=== PATIENT | male | born 1945 | race Caucasian/White ===

== ENCOUNTER 2024-06-16 07:53 | Inpatient (IN) | payer MEDICARE ==
[2024-06-09 13:53] LABS: BILIRUBIN,URINE NEGATIVE (Neg); CLARITY,URINE CLEAR (Clear); COLOR,URINE YELLOW (Yellow); GLUCOSE, URINE NEGATIVE (Neg); KETONES,URINE NEGATIVE (Neg); LEUKOCYTE ESTERASE ,URINE NEGATIVE (Neg); NITRITES, URINE NEGATIVE (Neg); OCCULT BLOOD,URINE TRACE-INTACT (Neg); PROTEIN,URINE NEGATIVE (Neg); UROBILINOGEN,URINE 0.2 E.U/dL (0.2-1.0)
[2024-06-09 14:04] LABS: BASOPHILS # (AUTO) 0.1 X10'3 (0-0.2); BASOPHILS % (AUTO) 0.7 % (0-1); EOSINOPHILS # (AUTO) 0.3 X10'3 (0-0.9); EOSINOPHILS % (AUTO) 3.1 % (0-6); LYMPHOCYTES % (AUTO) 22.7 % (21-51); MEAN CORPUSCULAR HEMOGLOBIN 30.5 PG (27.0-31.0); MEAN CORPUSCULAR HGB CONC 33.6 g/dL (33.0-36.5); MEAN CORPUSCULAR VOLUME 90.8 FL (78-98); MEAN PLATELET VOLUME 7.8 FL (7.4-10.4); MONOCYTES # (AUTO) 0.6 X10'3 (0-0.9); MONOCYTES % (AUTO) 7.2 % (2-12); NEUTROPHILS # (AUTO) 5.7 X10'3 (1.8-7.7); NEUTROPHILS % (AUTO) 66.3 % (42-75); PRE OP HEMATOCRIT 44.1 % (42.0-52.0); PRE OP HEMOGLOBIN 14.8 g/dL (14.0-17.9); PRE OP PLATELET COUNT 192 X10'3 (140-440); PRE OP WHITE BLOOD COUNT 8.6 10'3 (4.8-10.8); RED BLOOD COUNT 4.86 X10'6 (4.70-6.10); RED CELL DISTRIBUTION WIDTH 13.5 % (11.5-14.5)
[2024-06-09 14:08] LABS: PRE OP INR 1.2 INR; PRE OP PROTIME 12.1 SECONDS (9.0-12.0)
[2024-06-09 14:17] LABS: ALBUMIN 3.4 G/DL (3.4-5.0); ALBUMIN/GLOBULIN RATIO 1.1 (1.1-1.5); ALKALINE PHOSPHATASE 48 IU/L (46-116); BLOOD UREA NITROGEN 20 MG/DL (7-18); BUN/CREATININE RATIO 17.9 (10.0-20.0); CALCIUM 8.1 MG/DL (8.5-10.1); CHLORIDE 105 MMOL/L (99-107); CREATININE 1.12 MG/DL (0.60-1.10); PRE OP ALT 34 U/L (30-65); PRE OP ANION GAP 6 (8-16); PRE OP AST 22 U/L (10-37); PRE OP BILIRUB, TOTAL 0.6 MG/DL (0.0-1.0); PRE OP GLUCOSE 121 MG/DL (70-104); PRE OP POTASSIUM 3.8 MMOL/L (3.4-5.1); PRE OP SODIUM 140 MMOL/L (135-145); THYROID STIMULATING HORMONE 1.32 ulU/ml (0.34-4.50); TOTAL CARBON DIOXIDE 28.7 MMOL/L (24-32); TOTAL PROTEIN 6.5 G/DL (6.4-8.2); UA COLLECTION TYPE NON-SPECIFIED; eGFR 64 ML/MIN
[2024-06-09 14:18] LABS: BACTERIA,URINE NONE SEEN /HPF (Neg); SQUAMOUS EPITHELIAL CELL,UR FEW /LPF (FEW); WBC,URINE 0-4 /HPF (0-4)
[2024-06-16] VITALS (40 sets, daily range): BP systolic 97–163; BP diastolic 53–93; PULSE 61–96; RESP 12–21; TEMP 97–98; O2SAT 9–99
[~2024-06-16] VITALS: Ht 195.6 cm; Wt 125.3 kg
[2024-06-16] MEDS: Cefazolin 3 GM/100ML NS IVPB 100 ML IV ONE (05:30)
[~2024-06-16 07:53] MED LIST: ACET-1025 PO; AMLO5TAB16; CALC600T35 PO; CHOL500050 PO; DABI150C PO; DOCUMENT DATE & TIME OF BETA-BLOCKER PO ONE; FLEC100T PO; LEVO200T PO; LISI20TA28 PO; METO-384 PO; POTA-207 PO; PRAV40TA3; ondansetron/PF 4mg/2ml inj IV PRN
[2024-06-16] MEDS ORDERED: labetalol 20mg/4ml (5mg/ml) syringe IV PRN ×2 (08:40→11:45)
[2024-06-16] MEDS ORDERED: ondansetron/PF 4mg/2ml inj IV PRN ×2 (08:40→11:45)
[2024-06-16] MEDS ORDERED: morphine 2 MG/ML inj. syringe IV PRN (08:40)
[2024-06-16] MEDS ORDERED: morphine 4 MG/ML inj SYRINge IV PRN (08:40)
[2024-06-16] MEDS ORDERED: proCHLORperazine 10 MG/2 ml inj IV PRN ×2 (08:40→11:45)
[2024-06-16] MEDS ORDERED: acetaminophen 1,000mg/100ml IV 100 ML IV ONE (08:40)
[2024-06-16] MEDS ORDERED: ringers solution, lacted 1,000 ML IV SCH (08:40)
[2024-06-16] MEDS ORDERED: meperidine/PF 25mg/ml syringe IV PRN ×3 (08:40)
[2024-06-16] MEDS ORDERED: hydrALAZINE 20mg/ml inj. IV PRN ×2 (08:40→11:45)
[2024-06-16] MEDS: famotidine 20mg tablet PO ONE (08:54)
[2024-06-16] MEDS: vancomycin 1,500 MG in NS 300ml IV soln IV ONE (08:55)
[2024-06-16] MEDS: ringers solution, lacted 1,000 ML IV SCH (08:55)
[2024-06-16] MEDS ORDERED: LIDOcaine 1% (10mg/ml) 2ml vial ONE (10:33)
[2024-06-16] MEDS ORDERED: iohexol 350 MG/ML 50ML vial IV ONE ×2 (10:41→10:47)
[2024-06-16] MEDS ORDERED: sevoflurane 250ml liquid IH ONE (10:55)
[2024-06-16] MEDS ORDERED: fentaNYL/PF 50MCG/1 ML 2ML syringe ONE (10:59)
[2024-06-16] MEDS ORDERED: midazolam 1 mg/ML 2ml injection ONE (11:00)
[2024-06-16] MEDS ORDERED: LIDOcaine 1%/PF 5ML 10 MG/ML VIAL ONE (11:06)
[2024-06-16] MEDS ORDERED: propofol inj 20 ML IV ONE (11:06)
[2024-06-16] MEDS ORDERED: heparin 1,000unit/ml 10ml vial 10 ML ONE (11:12)
[2024-06-16] MEDS ORDERED: ondansetron/PF 4mg/2ml inj ONE (11:14)
[2024-06-16] MEDS ORDERED: dexamethasone sod phosphate 4mg/ml inj. ONE (11:14)
[2024-06-16] MEDS ORDERED: 0.9 % SODIUM CHLORIDE 10 ML VIAL ONE (11:17)
[2024-06-16] MEDS ORDERED: ePHEDrine 50MG/ML INJ. ONE (11:17)
[2024-06-16] MEDS ORDERED: magnesium sulf-water 2g/50mL 50 ML IV PRN (11:45)
[2024-06-16] MEDS ORDERED: potassium Cl 20 mEq SR tablet PO PRN (11:45)
[2024-06-16] MEDS ORDERED: acetaminophen 325mg tablet PO PRN (11:45)
[2024-06-16] MEDS ORDERED: potassium Cl 40MEQ/1/2NS 520ml 520 ML IV PRN (11:45)
[2024-06-16] MEDS ORDERED: pantoprazole 40mg Tablet.DR PO PRN (11:45)
[2024-06-16] MEDS ORDERED: HYDROcodone/acetaminophen 5mg/325mg tablet PO PRN (11:45)
[2024-06-16] MEDS ORDERED: magnesium sulf-water 4G/100mL 100 ML IV PRN (11:45)
[2024-06-16] MEDS ORDERED: potassium Cl 40MEQ/270ML bag 250 ML IV PRN (11:45)
[2024-06-16] MEDS ORDERED: potassium Cl 20mEq/100mL bag 100 ML IV PRN (11:45)
[2024-06-16] MEDS ORDERED: ALPRAZolam 0.25mg tablet PO PRN (11:45)
[2024-06-16] MEDS ORDERED: docusate sod 100mg capsule PO PRN (11:45)
[2024-06-16] MEDS ORDERED: diphenhydrAMINE 25mg capsule PO PRN (11:45)
[2024-06-16] MEDS ORDERED: potassium CL 10mEq/100ml bag 100 ML IV PRN (11:45)
[2024-06-16] MEDS: normal saline 1000ml 1,000 ML IV SCH (16:08)
[2024-06-16] MEDS: sod chloride 0.9% 10ml flush syringe IV SCH (16:13)
[2024-06-16] MEDS: ceFAZolin 1GM/D5W- ADD-VANTAGE 50 ML IV SCH (16:18)
[2024-06-16] MEDS: lisinopril 20mg tablet PO SCH (19:42)
[2024-06-16] MEDS: acetaminophen 325mg tablet PO SCH (19:44)
[2024-06-16] MEDS: vancomycin/NS 1 GM ADD-VANTAGE 250 ML IV SCH (19:45)
[2024-06-16] MEDS: flecainide 50mg tablet PO SCH (20:11)
[2024-06-16] MEDS: calcium carbonate 500mg tablet PO SCH (21:00)
[2024-06-17 02:00] VITALS: BP 105/64; PULSE 71; RESP 18; TEMP 98; O2SAT 96
[2024-06-17 03:45] VITALS: BP 111/73; PULSE 65; O2SAT 95
[2024-06-17 06:00] VITALS: BP 133/73; PULSE 70; RESP 26; TEMP 97.9; O2SAT 96
[2024-06-17] MEDS: levoTHYROXINE 100mcg tablet PO SCH (06:12)
[2024-06-17 06:35] LABS: BASOPHILS % (AUTO) 0.1 % (0-1); EOSINOPHILS % (AUTO) 0 % (0-6); HEMATOCRIT 41.5 % (42.0-52.0); HEMOGLOBIN 13.9 g/dl (14.0-17.9); LYMPHOCYTES # (AUTO) 1.2 X10'3 (1.1-4.8); LYMPHOCYTES % (AUTO) 11.5 % (21-51); MEAN CORPUSCULAR HEMOGLOBIN 30.4 PG (27.0-31.0); MEAN CORPUSCULAR HGB CONC 33.6 g/dL (33.0-36.5); MEAN CORPUSCULAR VOLUME 90.5 FL (78-98); MEAN PLATELET VOLUME 8.1 FL (7.4-10.4); MONOCYTES # (AUTO) 0.6 X10'3 (0-0.9); MONOCYTES % (AUTO) 5.4 % (2-12); NEUTROPHILS # (AUTO) 8.6 X10'3 (1.8-7.7); PLATELET COUNT 158 X10'3 (140-440); RED BLOOD COUNT 4.58 X10'6 (4.70-6.10); RED CELL DISTRIBUTION WIDTH 13.7 % (11.5-14.5); WHITE BLOOD COUNT 10.4 X10'3 (4.5-11.0)
[2024-06-17 06:50] LABS: PROTHROMBIN TIME 10.7 SECONDS (9.0-12.0)
[2024-06-17 06:56] LABS: ALANINE AMINOTRANSFERASE 25 U/L (12-78); ALKALINE PHOSPHATASE 41 IU/L (46-116); ANION GAP 8 (8-16); ASPARTATE AMINO TRANSFERASE 19 U/L (10-37); BILIRUBIN,TOTAL 0.4 MG/DL (0.1-1.0); BLOOD UREA NITROGEN 18 MG/DL (7-18); BUN/CREATININE RATIO 19.4 (10.0-20.0); CALCIUM 7.4 MG/DL (8.5-10.1); CHLORIDE 103 MMOL/L (99-107); CREATININE 0.93 MG/DL (0.60-1.10); GLUCOSE 131 MG/DL (70-104); MAGNESIUM 1.9 MG/DL (1.5-2.4); POTASSIUM 3.7 MMOL/L (3.5-5.1); PRO BRAIN NATRIURETIC PEPTIDE 242 PG/ML (0-450); SODIUM 138 MMOL/L (135-145); TOTAL CARBON DIOXIDE 27.3 MMOL/L (24-32); eCRCL 85 ML/MIN; eGFR 79 ML/MIN
[2024-06-17 08:00] VITALS: BP 133/73; PULSE 70; RESP 16; O2SAT 96
[2024-06-17] MEDS ORDERED: levoTHYROXINE 100mcg tablet PO SCH (08:00)
[2024-06-17] MEDS: amLODIPine 5mg tablet PO SCH (08:03)
[2024-06-17] MEDS: atorvastatin 10mg tablet PO SCH (08:05)
[2024-06-17] MEDS: cholecalciferol (vitamin D3) 1,000 unit (25mcg) tablet PO SCH (08:07)
[2024-06-17] MEDS: dabigatran 150mg capsule PO SCH (08:07)
[2024-06-17] MEDS: metoprolol succinate 25mg (24-HOUR) SR. Tablet PO SCH (08:07)
[2024-06-17] MEDS: potassium Cl 20 mEq SR tablet PO SCH (08:08)
[2024-06-17 12:00] VITALS: BP 126/69; PULSE 70; O2SAT 96
== END 2024-06-17 14:11 | disposition home or self-care (01) | DRG 274 ==
LOC: PAS IN 07:53 → EDSTATUS 10:30 → PCU 3S 15:51
PROVIDERS: ADMIT Student in an Organized Health Care Education/Training Program; ATTEND Student in an Organized Health Care Education/Training Program
PROC: 03HY32Z Insertion of Monitoring Device into Upper Artery, Percutaneous Approach (ICD-10-PCS; 2024-06-16)
PROC: B24BZZ4 Ultrasonography of Heart with Aorta, Transesophageal (ICD-10-PCS; 2024-06-16)
PROC: 02L73DK Occlusion of Left Atrial Appendage with Intraluminal Device, Percutaneous Approach (ICD-10-PCS; principal; 2024-06-16 10:55)
DX: I48.0 Paroxysmal atrial fibrillation (principal); Z00.6 Encounter for examination for normal comparison and control in clinical research program; G89.29 Other chronic pain; E78.5 Hyperlipidemia, unspecified; M54.89 Other dorsalgia; N40.0 Benign prostatic hyperplasia without lower urinary tract symptoms; I10 Essential (primary) hypertension; I35.1 Nonrheumatic aortic (valve) insufficiency
CPT/HCPCS: 33340; 36415; 71045; 71046; 76937; 80053; 81001; 82948; 83735; 83880; 84443; 85025; 85347; 85610; 85730; 86885; 86900; 86901; 86920; 87081; 93005; 93308; 93312; 93325; A4615; A4618; A6258; A6449; C1889; C1893; C1894; G0378; J0690; J1100; J1644; J2250; J2405; J2704; J3010; J3370; J3490; J7030; J7040; J7120; Q9967

== ENCOUNTER 2024-08-09 10:37 | Day surgery (SDC) | payer MEDICARE ==
[~2024-08-09] VITALS: Ht 195.6 cm; Wt 128.0 kg
[2024-08-09] VITALS (11 sets, daily range): BP systolic 116–157; BP diastolic 64–95; PULSE 63–80; RESP 12–19; TEMP 98.3; O2SAT 93–97
[~2024-08-09 10:37] MED LIST changes: -DOCUMENT DATE & TIME OF BETA-BLOCKER PO ONE; -ondansetron/PF 4mg/2ml inj IV PRN
[2024-08-09 11:26] LABS: ALBUMIN 3.8 G/DL (3.4-5.0); ANION GAP 8 (8-16); BLOOD UREA NITROGEN 14 MG/DL (7-18); BUN/CREATININE RATIO 14.6 (10.0-20.0); CALCIUM 7.8 MG/DL (8.5-10.1); CHLORIDE 104 MMOL/L (99-107); CREATININE 0.96 MG/DL (0.60-1.10); GLUCOSE 100 MG/DL (70-104); POTASSIUM 3.8 MMOL/L (3.5-5.1); SODIUM 140 MMOL/L (135-145); TOTAL CARBON DIOXIDE 27.9 MMOL/L (24-32); eCRCL 81 ML/MIN; eGFR 76 ML/MIN
[2024-08-09 11:28] LABS: APTT 30 SECONDS (22-32); PROTHROMBIN TIME 10.6 SECONDS (9.0-12.0)
[2024-08-09 11:35] LABS: BASOPHILS # (AUTO) 0.1 X10'3 (0-0.2); EOSINOPHILS # (AUTO) 0.2 X10'3 (0-0.9); EOSINOPHILS % (AUTO) 2.6 % (0-6); HEMATOCRIT 44.9 % (42.0-52.0); HEMOGLOBIN 15.2 g/dl (14.0-17.9); LYMPHOCYTES % (AUTO) 28.7 % (21-51); MEAN CORPUSCULAR HEMOGLOBIN 30.2 PG (27.0-31.0); MEAN CORPUSCULAR HGB CONC 33.9 g/dL (33.0-36.5); MEAN PLATELET VOLUME 8.1 FL (7.4-10.4); MONOCYTES # (AUTO) 0.7 X10'3 (0-0.9); MONOCYTES % (AUTO) 9.6 % (2-12); NEUTROPHILS # (AUTO) 4.1 X10'3 (1.8-7.7); NEUTROPHILS % (AUTO) 58.1 % (42-75); PLATELET COUNT 228 X10'3 (140-440); RED BLOOD COUNT 5.04 X10'6 (4.70-6.10); RED CELL DISTRIBUTION WIDTH 13.8 % (11.5-14.5)
[2024-08-09] MEDS ORDERED: CLOP75TA33 PO (13:23)
[2024-08-09] MEDS ORDERED: ASPI-611 PO (13:23)
[2024-08-09] MEDS: MIDAZolam 1mg/ml 10ml vial IV ONE (13:30)
[2024-08-09] MEDS: fentaNYL/PF 50MCG/1 ML 2ML syringe IV ONE (13:30)
== END 2024-08-09 14:40 | disposition home or self-care (01) ==
LOC: SSTAY O 10:37
PROVIDERS: ATTEND Internal Medicine Interventional Cardiology
DX: I48.91 Unspecified atrial fibrillation (principal); I11.9 Hypertensive heart disease without heart failure; E78.5 Hyperlipidemia, unspecified; E89.0 Postprocedural hypothyroidism; G47.33 Obstructive sleep apnea (adult) (pediatric); I35.1 Nonrheumatic aortic (valve) insufficiency; F12.90 Cannabis use, unspecified, uncomplicated; Z79.01 Long term (current) use of anticoagulants; Z79.1 Long term (current) use of non-steroidal anti-inflammatories (NSAID); Z79.890 Hormone replacement therapy; Z79.899 Other long term (current) drug therapy; Z90.89 Acquired absence of other organs; Z95.818 Presence of other cardiac implants and grafts; Z98.890 Other specified postprocedural states; Z80.9 Family history of malignant neoplasm, unspecified; Z81.8 Family history of other mental and behavioral disorders
CPT/HCPCS: 36415; 80048; 85025; 85610; 85730; 93325; C8925; J2250; J3010; J7030; Z7610; 93312